=== PATIENT | female | born 1965 | race Caucasian/White ===

== ENCOUNTER 2017-02-22 12:36 | Emergency (ER) | payer MEDICARE, MEDICAID ==
[~2017-02-22] VITALS: Ht 165.1 cm; Wt 79.5 kg
[~2017-02-22 12:36] MED LIST: AMOXICILLIN 50500 MG PO; DILAUDID 2MG TAB2 MG PO
[2017-02-22 12:40] VITALS: TEMP 98.8
[2017-02-22] MEDS ORDERED: COLACE 100100 MG/CAP PO (12:57)
[2017-02-22] MEDS ORDERED: MOTRIN 800800 MG/TAB PO (12:57)
[2017-02-22] MEDS ORDERED: OXY IR5 MG PO (12:58)
[2017-02-22] MEDS ORDERED: ZOFRAN 4MG T4 MG/TAB PO (12:58)
[2017-02-22] MEDS ORDERED: VENTOLIN0.09 MG IH (12:58)
[2017-02-22 13:18] LABS: BASO # 0.1 (0.0-0.2); BASO % 0.4 % (0.0-2.0); GRAN # 7.9 (1.4-6.5); GRAN % 70.4 % (42.2-75.2); HEMATOCRIT 39.4 % (37.0-47.0); HEMOGLOBIN 13.5 g/dl (12.5-16.0); LYMPH # 2.3 (1.2-3.4); LYMPH % 20.1 % (20.0-51.0); MEAN CELL VOLUME 87 fl (80.0-100.0); MEAN CORPUSCULAR HEMOGLOBIN 30 pg (27.0-31.0); MEAN CORPUSCULAR HGB CONC 34 g/dl (33.0-37.0); MEAN PLATELET VOLUME 10.5 fl (7.4-10.4); MONO # 0.9 (0.1-0.6); MONO % 7.8 % (1.7-9.3); PLATELET COUNT 406 K/mm3 (130-400); RED BLOOD COUNT 4.51 M/mm3 (4.10-5.30); REDCELL DISTRIBUTION WIDTH-CV 12.1 % (11.5-14.5); WHITE BLOOD COUNT 11.2 K/mm3 (4.8-10.8)
[2017-02-22 13:32] LABS: ALBUMIN 4.1 gm/dL (3.5-5.0); BILIRUBIN,TOTAL 0.6 mg/dL (0.0-1.0); C-REACTIVE PROTEIN 2.3 mg/dL (0.0-0.9); CALCIUM 9.1 mg/dL (8.4-10.2); CREATININE, serum 0.74 mg/dL (0.52-1.25); POTASSIUM 4.3 mmol/L (3.4-5.0); TOTAL PROTEIN 7.7 gm/dL (6.4-8.2)
[2017-02-22 14:03] LABS: PH 7 (5-8); SQUAMOUS EPITHELIAL 0-2 /hpf; URINE APPEARANCE Clear; URINE BACTERIA None Seen /hpf; URINE BILIRUBIN Negative (NEGATIVE); URINE BLOOD 3+ (NEGATIVE); URINE COLOR Yellow; URINE GLUCOSE Negative (NEGATIVE); URINE KETONE Negative (NEGATIVE); URINE RBC >50 /hpf; URINE UROBILINOGEN Negative (NEGATIVE)
[2017-02-22 17:18] VITALS: BP 106/77; PULSE 61
== END 2017-02-22 17:20 | disposition home or self-care (01) ==
LOC: COL.ER 12:36
PROVIDERS: Emergency Medicine
DX: R10.31 Right lower quadrant pain (principal); R10.32 Left lower quadrant pain; R11.2 Nausea with vomiting, unspecified; Z98.890 Other specified postprocedural states; J44.9 Chronic obstructive pulmonary disease, unspecified; F17.210 Nicotine dependence, cigarettes, uncomplicated
CPT/HCPCS: J1170; J2405; J7030; Q9967

== ENCOUNTER 2017-03-01 11:57 | Emergency (ER) | payer MEDICARE, MEDICAID ==
[~2017-03-01] VITALS: Ht 165.1 cm; Wt 77.3 kg
[~2017-03-01 11:57] MED LIST changes: +COLACE 100100 MG/CAP PO; +MOTRIN 800800 MG/TAB PO; +OXY IR5 MG PO; +VENTOLIN0.09 MG IH; +ZOFRAN 4MG T4 MG/TAB PO
[2017-03-01 11:59] VITALS: BP 159/97; TEMP 98.2
[2017-03-01 12:42] LABS: BASO # 0.1 (0.0-0.2); BASO % 0.8 % (0.0-2.0); GRAN % 63.9 % (42.2-75.2); HEMATOCRIT 40.9 % (37.0-47.0); LYMPH # 3.1 (1.2-3.4); LYMPH % 28.5 % (20.0-51.0); MEAN CELL VOLUME 86 fl (80.0-100.0); MEAN CORPUSCULAR HEMOGLOBIN 30 pg (27.0-31.0); MEAN CORPUSCULAR HGB CONC 34 g/dl (33.0-37.0); MEAN PLATELET VOLUME 10.6 fl (7.4-10.4); MONO # 0.7 (0.1-0.6); MONO % 6.3 % (1.7-9.3); PLATELET COUNT 487 K/mm3 (130-400); RED BLOOD COUNT 4.74 M/mm3 (4.10-5.30); REDCELL DISTRIBUTION WIDTH-CV 11.9 % (11.5-14.5)
[2017-03-01 12:58] LABS: ADJUSTED CALCIUM 9.1 mg/dL (8.4-10.2); ALBUMIN 4.5 gm/dL (3.5-5.0); BILIRUBIN,TOTAL 0.6 mg/dL (0.0-1.0); C-REACTIVE PROTEIN 0.6 mg/dL (0.0-0.9); CALCIUM 9.5 mg/dL (8.4-10.2); CREATININE, serum 0.82 mg/dL (0.52-1.25); POTASSIUM 4.4 mmol/L (3.4-5.0); TOTAL PROTEIN 8.4 gm/dL (6.4-8.2)
[2017-03-01 13:03] LABS: ERYTHROCYTE SEDIMENTATION RATE 34 mm/hr (0-30)
[2017-03-01 13:03] LABS: PH 7 (5-8); SQUAMOUS EPITHELIAL 0-2 /hpf; URINE APPEARANCE Hazy; URINE BACTERIA Rare /hpf; URINE BILIRUBIN Negative (NEGATIVE); URINE BLOOD 2+ (NEGATIVE); URINE COLOR Straw; URINE GLUCOSE Negative (NEGATIVE); URINE KETONE Negative (NEGATIVE); URINE UROBILINOGEN Negative (NEGATIVE)
[2017-03-01 13:10] LABS: URINE WBC >50 /hpf
[2017-03-01] MEDS ORDERED: ULTRAM 50MG TAB50 MG PO (13:20)
[2017-03-01] MEDS ORDERED: CIPRO 500MG TA500 MG PO (13:20)
[2017-03-01] MEDS ORDERED: ZOFRAN8 MG PO (13:20)
[2017-03-01] MEDS ORDERED: DILAUDID 2MG TAB2 MG PO (13:20)
[2017-03-01 14:40] VITALS: PULSE 63
== END 2017-03-01 16:05 | disposition home or self-care (01) ==
LOC: COL.ER 11:57
PROVIDERS: Emergency Medicine
DX: N10 Acute pyelonephritis (principal); F17.210 Nicotine dependence, cigarettes, uncomplicated; Z90.49 Acquired absence of other specified parts of digestive tract; Z90.710 Acquired absence of both cervix and uterus
CPT/HCPCS: J0696; J1170; J2405; J7030

== ENCOUNTER 2017-03-14 22:13 | Emergency (ER) | payer MEDICARE, MEDICAID ==
[~2017-03-14] VITALS: Ht 165.1 cm; Wt 77.3 kg
[~2017-03-14 22:13] MED LIST changes: +CIPRO 500MG TA500 MG PO; +ULTRAM 50MG TAB50 MG PO; +ZOFRAN8 MG PO
[2017-03-14 22:16] VITALS: TEMP 99.4
[2017-03-14 22:59] LABS: PH 6 (5-8); SQUAMOUS EPITHELIAL 0-2 /hpf; URINE APPEARANCE Clear; URINE BACTERIA None Seen /hpf; URINE BILIRUBIN Negative (NEGATIVE); URINE BLOOD Negative (NEGATIVE); URINE COLOR Yellow; URINE GLUCOSE Negative (NEGATIVE); URINE KETONE Negative (NEGATIVE); URINE RBC 0-2 /hpf; URINE UROBILINOGEN Negative (NEGATIVE); URINE WBC 0-2 /hpf
[2017-03-14 23:08] LABS: BASO # 0.1 (0.0-0.2); BASO % 0.7 % (0.0-2.0); EOS % 0.3 % (0-4.0); GRAN # 4.6 (1.4-6.5); GRAN % 50.3 % (42.2-75.2); HEMATOCRIT 37.3 % (37.0-47.0); HEMOGLOBIN 12.8 g/dl (12.5-16.0); LYMPH # 3.5 (1.2-3.4); MEAN CELL VOLUME 86 fl (80.0-100.0); MEAN CORPUSCULAR HEMOGLOBIN 30 pg (27.0-31.0); MEAN CORPUSCULAR HGB CONC 34 g/dl (33.0-37.0); MONO % 10.4 % (1.7-9.3); PLATELET COUNT 346 K/mm3 (130-400); RED BLOOD COUNT 4.33 M/mm3 (4.10-5.30); REDCELL DISTRIBUTION WIDTH-CV 11.8 % (11.5-14.5); WHITE BLOOD COUNT 9.2 K/mm3 (4.8-10.8)
[2017-03-14 23:34] LABS: ADJUSTED CALCIUM 9.5 mg/dL (8.4-10.2); ALANINE AMINOTRANSFERASE 34 U/L (9-52); ALKALINE PHOSPHATASE 60 U/L (50-136); ANION GAP 10 mmol/L (7-16); BILIRUBIN,TOTAL 0.3 mg/dL (0.0-1.0); BLOOD UREA NITROGEN 16 mg/dL (7-17); C-REACTIVE PROTEIN 1.6 mg/dL (0.0-0.9); CALCIUM 9.5 mg/dL (8.4-10.2); CARBON DIOXIDE 24 mmol/L (22-30); CHLORIDE 105 mmol/L (98-107); CREATININE, serum 0.95 mg/dL (0.52-1.25); GLUCOSE 93 mg/dL (74-106); LIPASE 171 U/L (23-300); POTASSIUM 3.9 mmol/L (3.4-5.0); SODIUM 139 mmol/L (137-145); TOTAL PROTEIN 7.3 gm/dL (6.4-8.2)
[2017-03-14 23:44] LABS: TROPONIN-I < 0.012 ng/mL (0.000-0.034)
[2017-03-14] MEDS ORDERED: ZOFRAN 4MG T4 MG/TAB PO (23:49)
[2017-03-15] VITALS: BP 131/81; PULSE 76
== END 2017-03-15 00:03 | disposition home or self-care (01) ==
LOC: COL.ER 22:13
PROVIDERS: Emergency Medicine
DX: R10.84 Generalized abdominal pain (principal); R53.81 Other malaise; R53.83 Other fatigue; R11.0 Nausea; R63.0 Anorexia; G89.29 Other chronic pain; Z98.890 Other specified postprocedural states; N95.1 Menopausal and female climacteric states
CPT/HCPCS: J1170; J2405; J7030

== ENCOUNTER 2017-03-23 17:37 | Emergency (ER) | payer MEDICARE, MEDICAID ==
[~2017-03-23] VITALS: Ht 165.1 cm; Wt 77.7 kg
[2017-03-23 17:38] VITALS: BP 161/95; TEMP 99.2
[2017-03-23 18:46] LABS: ADD PATHOLOGY DIFF REVIEW NO
[2017-03-23 19:01] LABS: HEMATOCRIT 40.5 % (37.0-47.0); HEMOGLOBIN 13.9 g/dl (12.5-16.0); MEAN CELL VOLUME 86 fl (80.0-100.0); MEAN CORPUSCULAR HEMOGLOBIN 29 pg (27.0-31.0); MEAN CORPUSCULAR HGB CONC 34 g/dl (33.0-37.0); MEAN PLATELET VOLUME 10.4 fl (7.4-10.4); PLATELET COUNT 385 K/mm3 (130-400); RED BLOOD COUNT 4.72 M/mm3 (4.10-5.30); REDCELL DISTRIBUTION WIDTH-CV 12.1 % (11.5-14.5); WHITE BLOOD COUNT 12.4 K/mm3 (4.8-10.8)
[2017-03-23 19:03] LABS: ADJUSTED CALCIUM 9.9 mg/dL (8.4-10.2); ALANINE AMINOTRANSFERASE 28 U/L (9-52); ALBUMIN 4.4 gm/dL (3.5-5.0); ALKALINE PHOSPHATASE 71 U/L (50-136); ANION GAP 11 mmol/L (7-16); BILIRUBIN,TOTAL 0.4 mg/dL (0.0-1.0); BLOOD UREA NITROGEN 19 mg/dL (7-17); CALCIUM 10.2 mg/dL (8.4-10.2); CARBON DIOXIDE 25 mmol/L (22-30); CHLORIDE 102 mmol/L (98-107); CREATININE, serum 0.85 mg/dL (0.52-1.25); GLUCOSE 85 mg/dL (74-106); POTASSIUM 4.5 mmol/L (3.4-5.0); SODIUM 138 mmol/L (137-145); TOTAL PROTEIN 8.2 gm/dL (6.4-8.2)
[2017-03-23 19:07] LABS: C-REACTIVE PROTEIN < 0.5 mg/dL (0.0-0.9)
[2017-03-23 19:14] LABS: PH 7 (5-8); SQUAMOUS EPITHELIAL 0-2 /hpf; URINE APPEARANCE Clear; URINE BACTERIA Rare /hpf; URINE BILIRUBIN Negative (NEGATIVE); URINE BLOOD 1+ (NEGATIVE); URINE COLOR Yellow; URINE GLUCOSE Negative (NEGATIVE); URINE KETONE Negative (NEGATIVE); URINE RBC 0-2 /hpf; URINE UROBILINOGEN Negative (NEGATIVE); URINE WBC 0-2 /hpf
[2017-03-23] MEDS ORDERED: MACROBID 1100 MG/CAP PO (20:13)
[2017-03-23 20:20] VITALS: PULSE 92
[2017-03-23 20:32] LABS: BAND 11 % (0-10); EOSINOPHIL 3 % (0-4); NEUTROPHILS 53 % (42.0-75.2); PLATELET ESTIMATE NORMAL (NORMAL); TOTAL CELLS COUNTED 100
== END 2017-03-23 20:56 | disposition home or self-care (01) ==
LOC: COL.ER 17:37
PROVIDERS: Family Medicine
DX: R10.9 Unspecified abdominal pain (principal); N30.90 Cystitis, unspecified without hematuria; G89.29 Other chronic pain; Z90.710 Acquired absence of both cervix and uterus
CPT/HCPCS: J1170; J1885; J2550

== ENCOUNTER 2017-03-30 11:26 | Emergency (ER) | payer MEDICARE, MEDICAID ==
[~2017-03-30] VITALS: Ht 165.1 cm; Wt 77.3 kg
[~2017-03-30 11:26] MED LIST changes: +MACROBID 1100 MG/CAP PO
[2017-03-30 11:28] VITALS: TEMP 99.4
[2017-03-30 13:50] LABS: PH 6 (5-8); URINE APPEARANCE Hazy; URINE BACTERIA Rare /hpf; URINE BILIRUBIN Negative (NEGATIVE); URINE BLOOD 1+ (NEGATIVE); URINE COLOR Yellow; URINE GLUCOSE Negative (NEGATIVE); URINE KETONE Negative (NEGATIVE); URINE RBC 0-2 /hpf; URINE UROBILINOGEN Negative (NEGATIVE)
[2017-03-30 13:50] LABS: BASO # 0.1 (0.0-0.2); BASO % 0.4 % (0.0-2.0); GRAN # 7.6 (1.4-6.5); HEMATOCRIT 40.3 % (37.0-47.0); HEMOGLOBIN 13.8 g/dl (12.5-16.0); LYMPH # 2.6 (1.2-3.4); LYMPH % 23.2 % (20.0-51.0); MEAN CELL VOLUME 85 fl (80.0-100.0); MEAN CORPUSCULAR HEMOGLOBIN 29 pg (27.0-31.0); MEAN CORPUSCULAR HGB CONC 34 g/dl (33.0-37.0); MEAN PLATELET VOLUME 10.5 fl (7.4-10.4); MONO # 0.9 (0.1-0.6); PLATELET COUNT 335 K/mm3 (130-400); RED BLOOD COUNT 4.74 M/mm3 (4.10-5.30); REDCELL DISTRIBUTION WIDTH-CV 11.9 % (11.5-14.5); WHITE BLOOD COUNT 11.2 K/mm3 (4.8-10.8)
[2017-03-30 14:04] LABS: ADJUSTED CALCIUM 9.4 mg/dL (8.4-10.2); ALBUMIN 4.4 gm/dL (3.5-5.0); BILIRUBIN,TOTAL 0.7 mg/dL (0.0-1.0); CALCIUM 9.7 mg/dL (8.4-10.2); CREATININE, serum 0.78 mg/dL (0.52-1.25); POTASSIUM 4.4 mmol/L (3.4-5.0); TOTAL PROTEIN 8.2 gm/dL (6.4-8.2)
[2017-03-30 14:45] VITALS: BP 180/90; PULSE 88
== END 2017-03-30 14:48 | disposition home or self-care (01) ==
LOC: COL.ER 11:26
PROVIDERS: Emergency Medicine
DX: K64.9 Unspecified hemorrhoids (principal); K59.00 Constipation, unspecified; K92.1 Melena; J44.9 Chronic obstructive pulmonary disease, unspecified; F17.210 Nicotine dependence, cigarettes, uncomplicated; Z90.710 Acquired absence of both cervix and uterus; Z98.890 Other specified postprocedural states

== ENCOUNTER 2017-12-31 15:07 | Emergency (ER) | payer MEDICARE ==
[~2017-12-31] VITALS: Ht 165.1 cm; Wt 72.7 kg
[2017-12-31 15:17] VITALS: BP 133/58; TEMP 97.1
[2017-12-31] MEDS ORDERED: FLEXERIL 1010 MG/TAB PO (16:53)
[2017-12-31] MEDS ORDERED: IBU800 M1 PO (16:53)
[2017-12-31 17:04] VITALS: PULSE 67
== END 2017-12-31 17:05 | disposition home or self-care (01) ==
LOC: COL.ER 15:07
DX: M51.27 Other intervertebral disc displacement, lumbosacral region (principal); G89.29 Other chronic pain; M54.5 Low back pain; F17.210 Nicotine dependence, cigarettes, uncomplicated; Z88.5 Allergy status to narcotic agent; Z98.890 Other specified postprocedural states
CPT/HCPCS: J1885

== ENCOUNTER 2018-05-20 20:07 | Emergency (ER) | payer MEDICARE ==
[~2018-05-20] VITALS: Ht 167.6 cm; Wt 77.3 kg
[~2018-05-20 20:07] MED LIST changes: +FLEXERIL 1010 MG/TAB PO; +IBU800 M1 PO
[2018-05-20 20:09] VITALS: BP 145/70; TEMP 98.9
[2018-05-20 20:37] LABS: COLLECTION METHOD CLEAN CATCH
[2018-05-20 20:40] LABS: BASO # 0.1 (0.0-0.2); BASO % 0.5 % (0.0-2.0); EOS % 0.3 % (0-4.0); GRAN # 6.1 (1.4-6.5); GRAN % 60.3 % (42.2-75.2); HEMATOCRIT 42.1 % (37.0-47.0); HEMOGLOBIN 14.5 g/dl (12.5-16.0); LYMPH # 3.2 (1.2-3.4); LYMPH % 31.9 % (20.0-51.0); MEAN CELL VOLUME 85 fl (80.0-100.0); MEAN CORPUSCULAR HEMOGLOBIN 29 pg (27.0-31.0); MEAN CORPUSCULAR HGB CONC 34 g/dl (33.0-37.0); MEAN PLATELET VOLUME 10.6 fl (7.4-10.4); MONO # 0.7 (0.1-0.6); MONO % 6.7 % (1.7-9.3); PLATELET COUNT 382 K/mm3 (130-400); RED BLOOD COUNT 4.95 M/mm3 (4.10-5.30); REDCELL DISTRIBUTION WIDTH-CV 12.2 % (11.5-14.5)
[2018-05-20 20:49] LABS: MUCOUS Present /lpf; PH 6 (5-8); SQUAMOUS EPITHELIAL 0-2 /hpf; URINE APPEARANCE Clear; URINE BACTERIA None Seen /hpf; URINE BILIRUBIN Negative (NEGATIVE); URINE BLOOD Negative (NEGATIVE); URINE COLOR Yellow; URINE GLUCOSE Negative (NEGATIVE); URINE KETONE Negative (NEGATIVE); URINE LEUKOCYTE ESTERASE Negative (NEGATIVE); URINE NITRATE Negative (NEGATIVE); URINE PROTEIN(semi-quant) Negative (NEGATIVE); URINE RBC 0-2 /hpf; URINE UROBILINOGEN Negative (NEGATIVE)
[2018-05-20 20:56] LABS: ALANINE AMINOTRANSFERASE 43 U/L (9-52); ALBUMIN 4.2 gm/dL (3.5-5.0); ALKALINE PHOSPHATASE 87 U/L (50-136); ANION GAP 13 mmol/L (7-16); AST,SGOT 32 U/L (15-37); BILIRUBIN,TOTAL 0.3 mg/dL (0.0-1.0); BLOOD UREA NITROGEN 18 mg/dL (7-17); CALCIUM 9.3 mg/dL (8.4-10.2); CARBON DIOXIDE 24 mmol/L (22-30); CHLORIDE 103 mmol/L (98-107); CREATININE, serum 0.77 mg/dL (0.52-1.25); GLUCOSE 129 mg/dL (74-106); SODIUM 141 mmol/L (137-145); TOTAL PROTEIN 7.9 gm/dL (6.4-8.2)
[2018-05-20 20:58] LABS: C-REACTIVE PROTEIN < 0.5 mg/dL (0.0-0.9)
[2018-05-20] MEDS ORDERED: NORCO 325 MG-51 TAB PO (22:31)
[2018-05-20] MEDS ORDERED: NEURONTIN300 MG/CAP PO (22:31)
[2018-05-20 22:59] VITALS: PULSE 64
== END 2018-05-20 22:58 | disposition home or self-care (01) ==
LOC: COL.ER 20:07
PROVIDERS: Emergency Medicine
DX: R10.2 Pelvic and perineal pain (principal); Z90.710 Acquired absence of both cervix and uterus
CPT/HCPCS: J0780; J1170; J1885; J7030; Q9967

== ENCOUNTER 2019-07-14 13:00 | Emergency (ER) | payer MEDICARE ==
[~2019-07-14] VITALS: Ht 165.1 cm; Wt 77.3 kg
[~2019-07-14 13:00] MED LIST changes: +NEURONTIN300 MG/CAP PO; +NORCO 325 MG-51 TAB PO
[2019-07-14 13:16] VITALS: BP 153/86; TEMP 98.4
[2019-07-14] MEDS ORDERED: NORCO 325 MG-51 TAB PO (17:37)
[2019-07-14 17:43] LABS: COLLECTION METHOD CLEAN CATCH
[2019-07-14 17:59] LABS: MUCOUS Present /lpf; PH 5 (5-8); URINE APPEARANCE Hazy; URINE BACTERIA Rare /hpf; URINE BILIRUBIN Negative (NEGATIVE); URINE BLOOD 1+ (NEGATIVE); URINE COLOR Yellow; URINE GLUCOSE Negative (NEGATIVE); URINE KETONE Negative (NEGATIVE); URINE LEUKOCYTE ESTERASE Negative (NEGATIVE); URINE NITRATE Negative (NEGATIVE); URINE PROTEIN(semi-quant) Negative (NEGATIVE); URINE RBC 0-2 /hpf; URINE UROBILINOGEN Negative (NEGATIVE)
[2019-07-14 18:35] VITALS: PULSE 85
== END 2019-07-14 18:35 | disposition home or self-care (01) ==
LOC: COL.ER 13:00
PROVIDERS: Emergency Medicine
DX: M54.5 Low back pain (principal); M53.3 Sacrococcygeal disorders, not elsewhere classified; G89.29 Other chronic pain; F17.210 Nicotine dependence, cigarettes, uncomplicated; Z98.51 Tubal ligation status

== ENCOUNTER 2019-12-24 14:59 | Emergency (ER) | payer MEDICARE ==
[~2019-12-24] VITALS: Ht 165.1 cm; Wt 72.7 kg
[2019-12-24 15:07] VITALS: PULSE 87
[2019-12-24] MEDS ORDERED: VALTREX1 GM PO (16:08)
[2019-12-24] MEDS ORDERED: CEPHALEXIN500 M1 PO (16:08)
[2019-12-24 16:34] VITALS: BP 129/84; TEMP 98.5
== END 2019-12-24 16:34 | disposition home or self-care (01) ==
LOC: COL.ER 14:59
DX: L98.9 Disorder of the skin and subcutaneous tissue, unspecified (principal); F17.210 Nicotine dependence, cigarettes, uncomplicated

== ENCOUNTER 2020-01-02 22:19 | Emergency (ER) | payer MEDICARE ==
[~2020-01-02] VITALS: Ht 167.6 cm; Wt 72.7 kg
[~2020-01-02 22:19] MED LIST changes: +CEPHALEXIN500 M1 PO; +VALTREX1 GM PO
[2020-01-02 23:13] LABS: BASO % 0.4 % (0.0-2.0); EOS # 0.4 (0.0-0.7); EOS % 3.6 % (0-4.0); GRAN # 5.3 (1.4-6.5); GRAN % 50.9 % (42.2-75.2); HEMATOCRIT 39.1 % (37.0-47.0); HEMOGLOBIN 13.3 g/dl (12.5-16.0); LYMPH # 3.7 (1.2-3.4); LYMPH % 35.6 % (20.0-51.0); MEAN CELL VOLUME 88 fl (80.0-100.0); MEAN CORPUSCULAR HEMOGLOBIN 30 pg (27.0-31.0); MEAN CORPUSCULAR HGB CONC 34 g/dl (33.0-37.0); MEAN PLATELET VOLUME 10.5 fl (7.4-10.4); MONO # 0.9 (0.1-0.6); MONO % 8.8 % (1.7-9.3); PLATELET COUNT 298 K/mm3 (130-400); RED BLOOD COUNT 4.46 M/mm3 (4.10-5.30); REDCELL DISTRIBUTION WIDTH-CV 12.2 % (11.5-14.5)
[2020-01-02 23:21] LABS: COLLECTION METHOD CLEAN CATCH
[2020-01-02 23:25] LABS: ALBUMIN 3.7 gm/dL (3.5-5.0); BILIRUBIN,TOTAL 0.3 mg/dL (0.0-1.0); C-REACTIVE PROTEIN 0.9 mg/dL (0.0-0.9); CALCIUM 9.2 mg/dL (8.4-10.2); CREATININE, serum 0.79 (0.52-1.25); TOTAL PROTEIN 7.1 gm/dL (6.4-8.2)
[2020-01-02 23:26] LABS: MUCOUS Present /lpf; PH 7 (5-8); SQUAMOUS EPITHELIAL 0-2 /hpf; URINE APPEARANCE Clear; URINE BACTERIA Rare /hpf; URINE BILIRUBIN Negative (NEGATIVE); URINE BLOOD 1+ (NEGATIVE); URINE COLOR Straw; URINE GLUCOSE Negative (NEGATIVE); URINE KETONE Negative (NEGATIVE); URINE LEUKOCYTE ESTERASE Negative (NEGATIVE); URINE NITRATE Negative (NEGATIVE); URINE PROTEIN(semi-quant) Negative (NEGATIVE); URINE RBC 0-2 /hpf; URINE UROBILINOGEN Negative (NEGATIVE)
[2020-01-03 00:30] VITALS: BP 141/76; PULSE 78; TEMP 98
== END 2020-01-03 00:33 | disposition home or self-care (01) ==
LOC: COL.ER 22:19
PROVIDERS: Nurse Practitioner
DX: J44.9 Chronic obstructive pulmonary disease, unspecified (principal); R11.2 Nausea with vomiting, unspecified; F17.210 Nicotine dependence, cigarettes, uncomplicated; Z90.89 Acquired absence of other organs
CPT/HCPCS: J2405; J7030

== ENCOUNTER 2020-02-12 17:12 | Emergency (ER) | payer MEDICARE ==
[~2020-02-12] VITALS: Ht 167.6 cm; Wt 77.3 kg
[2020-02-12 17:17] VITALS: BP 131/939; TEMP 98.9
[2020-02-12] MEDS ORDERED: LIDODERM 5% PATC1 EA TP (17:45)
[2020-02-12] MEDS ORDERED: NORCO 325 MG-7.1 TAB PO (20:00)
[2020-02-12] MEDS ORDERED: VALIUM 10MG10 MG/TAB PO (20:00)
[2020-02-12 20:33] VITALS: PULSE 75
== END 2020-02-12 20:33 | disposition home or self-care (01) ==
LOC: COL.ER 17:12
DX: M54.42 Lumbago with sciatica, left side (principal); J44.9 Chronic obstructive pulmonary disease, unspecified; F17.210 Nicotine dependence, cigarettes, uncomplicated; Z88.5 Allergy status to narcotic agent; Z90.710 Acquired absence of both cervix and uterus; Z90.89 Acquired absence of other organs
CPT/HCPCS: J1170; J1885; J3360

== ENCOUNTER 2021-03-25 16:24 | Emergency (ER) | payer MEDICARE ==
[~2021-03-25] VITALS: Ht 165.1 cm; Wt 79.5 kg
[~2021-03-25 16:24] MED LIST changes: +LIDODERM 5% PATC1 EA TP; +NORCO 325 MG-7.1 TAB PO; +VALIUM 10MG10 MG/TAB PO
[2021-03-25] MEDS ORDERED: NAPROSYN500 MG PO (18:02)
[2021-03-25] MEDS ORDERED: FLEXERIL 1010 MG/TAB PO (18:03)
[2021-03-25 18:10] VITALS: BP 134/64; PULSE 74; TEMP 97.4
== END 2021-03-25 18:11 | disposition home or self-care (01) ==
LOC: COL.ER 16:24
DX: M54.5 Low back pain (principal); F17.210 Nicotine dependence, cigarettes, uncomplicated; Z88.6 Allergy status to analgesic agent; Z79.1 Long term (current) use of non-steroidal anti-inflammatories (NSAID)
CPT/HCPCS: J1200; J1885

== ENCOUNTER 2023-08-02 15:16 | Emergency (ER) | payer MEDICARE ==
[~2023-08-02] VITALS: Ht 165.1 cm; Wt 83.2 kg
[~2023-08-02 15:16] MED LIST changes: +NAPROSYN500 MG PO; +PERCOCET 325 MG1 TA2 PO
[2023-08-02 15:24] VITALS: TEMP 98.5
[2023-08-02 16:02] LABS: BASO # 0.1 K/mm3 (0.0-0.2); BASO % 0.5 % (0.0-2.0); EOS % 0.1 % (0.0-4.0); GRAN # 7.1 K/mm3 (1.4-6.5); GRAN % 70.7 % (42.2-75.2); HEMATOCRIT 35.9 % (37.0-47.0); LYMPH % 19.6 % (20.0-51.0); MEAN CELL VOLUME 88 fl (80.0-100.0); MEAN CORPUSCULAR HEMOGLOBIN 29 pg (27-31); MEAN CORPUSCULAR HGB CONC 33 g/dl (33.0-37.0); MEAN PLATELET VOLUME 10.3 fl (7.4-10.4); MONO # 0.9 K/mm3 (0.1-0.6); MONO % 8.5 % (1.7-9.3); PLATELET COUNT 566 K/mm3 (130-400); REDCELL DISTRIBUTION WIDTH-CV 12.7 % (11.5-14.5)
[2023-08-02 16:52] LABS: ALANINE AMINOTRANSFERASE 35 U/L (0-55); ALBUMIN 3.2 gm/dL (3.5-5.0); ALKALINE PHOSPHATASE 94 U/L (40-150); ANION GAP 11 mmol/L (7-16); AST,SGOT 22 U/L (5-34); BILIRUBIN,TOTAL 0.4 mg/dL (0.2-1.2); BLOOD UREA NITROGEN 17 mg/dL (10-20); CALCIUM 9.1 mg/dL (8.4-10.2); CARBON DIOXIDE 19 mmol/L (22-29); CHLORIDE 107 mmol/L (98-107); CREATININE, serum 0.87 mg/dL (0.57-1.11); GLUCOSE 147 mg/dL (70-99); LIPASE 24 U/L (8-78); POTASSIUM 4.1 mmol/L (3.5-4.5); SODIUM 137 mmol/L (136-145); TOTAL PROTEIN 6.8 gm/dL (6.2-8.1)
[2023-08-02 17:02] LABS: TROPONIN-I < 0.010 ng/mL (0.00-0.033)
[2023-08-02] MEDS ORDERED: LIPITOR 10MG10 MG (17:36)
[2023-08-02] MEDS ORDERED: COREG 6.256.25 MG/TA (17:36)
[2023-08-02 19:33] VITALS: BP 137/72; PULSE 72
== END 2023-08-02 19:33 | disposition home or self-care (01) ==
LOC: COL.ER 15:16
PROVIDERS: Emergency Medicine
DX: R07.89 Other chest pain (principal); J90 Pleural effusion, not elsewhere classified; Z95.1 Presence of aortocoronary bypass graft
CPT/HCPCS: J2270; J7030; Q9967